=== PATIENT | female | born 1970 | race Hispanic/Latino ===

== ENCOUNTER 2016-11-07 15:46 | Emergency (ER) | payer OTHER ==
[~2016-11-07 15:46] MED LIST: ASCO500T8 PO; Docusate Sodium PO; FERR-74 PO; Ibuprofen PO; OXYC1CAP21 PO; SULF1TAB7 PO
[2016-11-07 15:50] VITALS: BP 109/68; PULSE 71; RESP 16; O2SAT 95
[2016-11-07 16:43] LABS: BASOPHILS % (AUTO) 0.2 % (0-3); EOSINOPHILS % (AUTO) 1.6 % (0-5); MONOCYTES % (AUTO) 4.2 % (4-12); Mean Corpuscular Hemoglobin 27.7 pg (27.0-35.0); Mean Corpuscular Volume 82.2 fL (81-100); NEUTROPHILS % (AUTO) 54.9 % (40-74); Platelet Count 204 bil/L (150-400)
[2016-11-07 17:04] LABS: Magnesium 1.9 mg/dL (1.6-2.6)
[2016-11-07 19:02] LABS: APPEARANCE,URINE HAZY (CLEAR,HAZY); COLOR,URINE YELLOW (YELLOW)
[2016-11-07 19:03] LABS: OCCULT BLOOD,URINE NEGATIVE (NEGATIVE); UROBILINOGEN,URINE NORMAL (NORMAL)
--- NOTE | 2016-11-07 19:22 | ED.REPORT ---
HPI-Abd Pain F 40 and Over Date of Service Nov 07, 2016 ED Provider: Israel Gary MD Pt is a 46 y/o Kosovan-speaking female who presents to ER for left side abdominal pain onset three days ago. She states that the pain spreads medially into her epigastrium. History of similar one year ago, resolved with prescribed medication though she is unsure as to the medications she used to relieve them. Pain is exacerbated with urination. Urinating also elicits perineal pain. Pain is not exacerbated by eating or movement. Pt denies vomiting, diarrhea, constipation, and nausea. Nursing Notes Stated Complaint: ABDOMINAL PAIN Chief Complaint: Female Abdominal Pain Nursing Notes Reviewed: Yes Allergies: Coded Allergies: No Known Allergies (Verified , 02/21/14) Scheduled ([Docusate Sodium]) 100 MG CAPSULE 100 MG PO DAILY Ascorbic Acid (Vitamin C) 500 Mg Tablet 500 MG PO ONCE Ferrous Sulfate (Feosol) 325 Mg Tablet 325 MG PO ONCE Oxycodone Hcl/APAP-Expunged, Do Not Renew! (Oxycodone-Apap [id number], Do Not Renew!) 1 Cap Capsule 1 CAP PO PRN Take 1-2 tabs if needed for pain Ranitidine (Ranitidine) 150 Mg Capsule 150 MG PO BID Sulfamethoxazole/Trimeth 800-160 mg (Bactrim DS) 1 Each Tablet 1 TABLET PO BID Scheduled PRN ([Ibuprofen]) 600 MG TABLET 600 MG PO Q6H PRN PRN For Mild Pain Tramadol (Tramadol) 50 Mg Tablet 100 MG PO Q6H PRN PRN For Pain General Time Seen by MD: 19:20 Chief Complaint Abdominal pain Hx Obtained From: Patient Arrived By: Walk-in Sudden in Onset?: No Onset Occurred: 3 days ago Symptom Duration: Since onset Location: : Epigastric: LUQ Severity: Current: Moderate Severity: Maximum: Moderate Associated with: Reports: Dysuria, Fever, Denies: Constipation, Diarrhea, Nausea, Vomiting Similar Sx Previous: Yes Past Medical History Past Surgical History 4-5 years ago. Reports: Cholecystectomy Social History Alcohol Use: Denies alcohol use Drug Use: Denies drug use Review of Systems Constitutional: Reports: Fever GI: Reports: Abdominal pain, Denies: Constipation, Diarrhea, Hematemesis, Nausea, Vomiting Female: Reports: Dysuria Complete sys rev & neg: except as marked. Physical Exam Vital Signs Vital Signs (First) Date Time Temp Pulse Resp B/P Pulse Ox O2 Delivery O2 Flow Rate FiO2 11/07/16 15:50 37.2 71 16 109/68 95 Room Air Initial VS: Reviewed Head / Eyes: Atraumatic, Normocephalic Neck: Supple, Non-tender, Full range of motion Extremities: Vascular intact, Neuro intact, No swelling, No tenderness Neurologic: Alert, Oriented, Nonfocal Psychiatric: Mood/affect normal, Behavior normal, Normal thought content General/Constitutional: Awake, Alert, Well appearing Respiratory / Chest: Breath sounds NL, Breath sounds = bilat, No respiratory distress, No rales, No rhonchi, No wheezing, No stridor Cardiovascular: Heart rate NL, Regular rhythm, Heart sounds NL, Peripheral circulation NL Abdomen: No guarding, No rebound Tenderness/Guarding/Rebound: Positive: Tender LUQ..., Tender epigastric Back: Inspection NL, Non-tender, No CVA tenderness Interpretation & Diagnostics Lab Results Interpretation Result Diagram: 11/07/16 1630 11/07/16 1630 Test 11/07/16 16:30 11/07/16 18:49 White Blood Count 8.1th/mm3 (3.8-10.1) Red Blood Count 4.26mil/mm3 (3.90-5.20) Hemoglobin 11.8g/dL (12.0-15.6) Hematocrit 35.0% (35.0-46.0) Mean Corpuscular Volume 82.2fL (81-100) Mean Corpuscular Hemoglobin 27.7pg (27.0-35.0) Mean Corpuscular Hemoglobin Concent 33.7% (32.0-37.0) Red Cell Distribution Width 13.2% (12.3-15.4) Platelet Count 204bil/L (150-400) Neutrophils (%) (Auto) 54.9% (40-74) Lymphocytes (%) (Auto) 39.0% (14-46) Monocytes (%) (Auto) 4.2% (4-12) Eosinophils (%) (Auto) 1.6% (0-5) Basophils (%) (Auto) 0.2% (0-3) Sodium Level 138mEq/L (134-144) Potassium Level 3.7mEq/L (3.5-5.2) Chloride Level 102mEq/L (97-108) Carbon Dioxide Level 25mmol/L (18-29) Blood Urea Nitrogen 8mg/dL (6-24) Creatinine 0.35mg/dL (0.57-1.00) Estimat Glomerular Filtration Rate 290mL/min (>59) Glucose Level 190mg/dL (60-99) Calcium Level 8.7mg/dL (8.5-10.1) Magnesium Level 1.9mg/dL (1.6-2.6) Total Bilirubin 0.3mg/dL (0.0-1.2) Aspartate Amino Transf (AST/SGOT) 15U/L (0-50) Alanine Aminotransferase (ALT/SGPT) 18U/L (0-32) Alkaline Phosphatase 53U/L (25-150) Total Protein 7.3g/dL (6.4-8.4) Albumin 3.9g/dL (3.4-5.0) Lipase 59U/L (13-60) Hold Linda Top Tube Received (Received) Urine Color Yellow (YELLOW) Urine Appearance Hazy (CLEAR,HAZY) Urine pH 6.0 (5.0-8.0) Urine Specific [place] 1.025 (1.003-1.035) Urine Protein Negativemg/dL (NEG,TRACE) Urine Glucose (UA) Negativemg/dL (NEGATIVE) Urine Ketones Negativemg/dL (NEGATIVE) Urine Occult Blood Negative (NEGATIVE) Urine Nitrite Negative (NEGATIVE) Urine Bilirubin Negative (NEGATIVE) Urine Urobilinogen Normalmg/dL (NORMAL) Urine Leukocyte Esterase Negative (NEGATIVE) Urine RBC 0-2/hpf (0-2) Urine WBC 0-5/hpf (0-5) Urine Epithelial Cells None/hpf (NONE-MOD) Urine Crystals None seen (NONE SEEN) Urine Bacteria Few/hpf (NONE-FEW) Urine Hyaline Casts None/lpf (NONE) Urine Granular Casts None seen (NONE SEEN) Urine Waxy Casts None seen (NONE SEEN) Urine Red Blood Cell Casts None seen (NONE SEEN) Urine White Blood Cell Casts None seen (NONE SEEN) Urine Mucus Present (None Seen) Urine Trichomonas None seen (NONE SEEN) Urine Yeast None (NONE SEEN) Urinalysis Comment None Urine Culture Reflexed Not indicated Re-Eval/Medical Decision Counseled Regarding: Diagnosis, Lab results, Need for follow-up, When/why to return to ED Discharge & Departure Primary Impression: Acute abdominal pain Disposition: Home Discharge Condition All VS Reviewed: Yes Condition: Stable Additional Instructions: No dangerous cause for your abdominal pain is discovered. Your blood work, urine and vital signs were all within normal limits. Call tomorrow morning for an appointment on Saturday for reevaluation. Return to the emergency department if you develop fever or uncontrolled pain or other new or worrisome symptoms. [employer] Translate No se descubre ninguna causa peligrosa para delgado dolor abdominal. Delgado anlisis de unique, orina y signos vitales estaban dentro de los lmites normales. Llame maana por la maana para molly henri el viernes para la reevaluacin. Vuelva al departamento de urgencias si presenta fiebre o dolor incontrolado u otros sntomas nuevos o preocupantes. Referrals: [facility] ([facility]) Marya Attestation Portions of this note were transcribed by García Vaughan and Tommie Quigley. I, personally performed the history, physical exam and medical decision -making; I reviewed and confirmed the accuracy of the information in the transcribed note. Signed by:aMrya Barnes, 11/07/16 and 2041. copies to: [facility] Kirk H MD Nov 07, 2016 19:22 García Vaughan Nov 07, 2016 19:40 TOMMIE QUIGLEY Nov 07, 2016 20:42
[2016-11-07] MEDS ORDERED: RANI150C4 PO (19:46)
[2016-11-07] MEDS ORDERED: TRAM50TA2 PO (19:46)
[2016-11-07 19:54] VITALS: BP 106/50; PULSE 65; RESP 16; O2SAT 97
== END 2016-11-07 19:55 | disposition home or self-care (01) ==
LOC: EDUNIT# 15:46 → SED 15:46
DX: R10.13 Epigastric pain (principal); R30.9 Painful micturition, unspecified

== ENCOUNTER 2017-04-16 11:38 | Emergency (ER) | payer MEDICAID, OTHER ==
[~2017-04-16 11:38] MED LIST changes: +RANI150C4 PO; +TRAM50TA2 PO
[2017-04-16 11:41] VITALS: BP 111/66; PULSE 76; RESP 20; O2SAT 98
--- NOTE | 2017-04-16 11:55 | ED.REPORT ---
HPI-General Illness Date of Service Apr 16, 2017 ED Provider: Dakota Vizcarra MD Patient is a 47 year old Bruneian-speaking female who presents to the ED complaining of bilateral hand pain and tingling onset over one month ago. Associated symptoms include intermittent hand numbness that is worse with repetitive use of her hands. She denies weakness, headache, or any other symptoms. 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 She also reports upper back and shoulder pain which she attributes to spending her days bending over in the field. She has no other associated symptoms or complaints. She has not seen a physician for this problem or taken any medication. Nursing Notes Stated Complaint: RT ARM NUMBNESS Chief Complaint: Extremity Trauma Nursing Notes Reviewed: Yes Allergies: Coded Allergies: No Known Allergies (Verified , 04/16/17) Scheduled ([Docusate Sodium]) 100 MG CAPSULE 100 MG PO DAILY Ascorbic Acid (Vitamin C) 500 Mg Tablet 500 MG PO ONCE Ferrous Sulfate (Feosol) 325 Mg Tablet 325 MG PO ONCE Oxycodone Hcl/APAP-Expunged, Do Not Renew! 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 (1 month) Symptom Duration: Intermittent Past Medical History Past Medical History Miscarriage 2008 after 5 month Past Surgical History 4-5 years ago. Reports: Cholecystectomy Smoking History Never Smoker Social History Alcohol Use: Denies alcohol use Drug Use: Denies drug use Ambulatory Status Independent Review of Systems Full Review of Systems Musculoskeletal: Reports: Extremity pain Neurologic: Reports: Numbness, Denies: Headache, Weakness Complete sys rev & neg: except as marked. Physical Exam Vital Signs Vital Signs Date Time Temp Pulse Resp B/P Pulse Ox O2 Delivery O2 Flow Rate FiO2 04/16/17 11:41 36.4 76 20 111/66 98 Room Air Initial VS: Reviewed, Vital signs normal Head / Eyes: Atraumatic, Normocephalic Neck: Supple, Full range of motion Respiratory: Breath sounds normal, Clear to auscultation, No respiratory distress Cardiovascular: Regular rate & rhythm, Heart sounds normal, Intact distal pulses Abdomen / GI: Soft, Non-tender Skin: Warm, Dry Neurologic: Alert, Oriented, Nonfocal Psychiatric: Mood/affect normal, Behavior normal, Normal thought content General/Constitutional: Awake, Alert, No acute distress, Well appearing Upper Extremities Upper Extremity / MS: No deformity Tingling reproducible with flexion of wrists positive Phalen's sign and Tinel sign Re-Eval/Medical Decision Med Decision/Clinical Course Patient is a 47 year old Bruneian-speaking female who presents to the ED complaining of bilateral hand pain and tingling onset over one month ago that happens in the setting of recurrent use of her hands 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 Here in the emergency department the patient is afebrile, hemodynamically stable and in no apparent distress. The patient has reproducible pins and needle sensation in her hands with tapping about the dorsal aspect of her wrist (Tinel test). The patient additionally has a positive Phalen test. Presentation is consistent with carpal tunnel syndrome in the setting of her tentative wrist motions. I provided her a cockup wrist splint and advised her to take ibuprofen and avoid repetitive wrist movements as much as possible. At this time, I feel that she is appropriate for discharge. She will follow up closely with her primary care physician. Prior to discharge follow-up and return precautions were reviewed in detail with the patient who verbalized understanding and agreement with the plan. The patient was discharged in stable condition. Time of Eval: 12:08 Re-Evaluation/Progress Note: Discussed plan for discharge. Patient understands and agrees with plan. All questions addressed at this time. Counseled Regarding: Diagnosis, Need for follow-up, When/why to return to ED Discharge & Departure Primary Impression: Carpal tunnel syndrome on both sides Additional Impression: Upper back pain Disposition: Home Discharge Condition All VS Reviewed: Yes Condition: Stable Additional Instructions: Thank you for seeking care at the emergency room. It is difficult for us to make definitive diagnoses in the ED but we believe that you are experiencing back pain from bending over picking strawberries as well as carpal tunnel syndrome. Our primary goal today in the ED was to evaluate you for any life-threatening conditions. Your evaluation was reassuring. You may take ibuprofen 400 mg 3 times a day for up to 2 weeks. Please use wrist splints as directed at night. You should follow-up with your primary doctor in the next week. You should return to the ED immediately if you develop worsening symptoms, fevers, vomiting, cough, shortness of breath, chest pain, lightheadedness, weakness or any other concerning signs or symptoms. Thank you for letting us partake in your care today. Bety por buscar atencin mdica en la [facility]gen[facility]. Es dificil hacer molly diagnosis definitiva en la [facility] Emer[facility], ben creemos que usted tiene dolor de espalda causada por agacharse trabajando en las fresas, y tambien tiene sndrome del [facility] subhash. Nuestra meta principal hoy en la [facility] Emer[facility] fue evaluarla para condiciones que ponen en peligro la chanel. La evaluacin me vladimir tranquilo. Puede theresa Ibuprofen 400 mg, 3 veces al mery por hasta 2 semanas. Favor de usar los soportes de la mueca en la noche, page dirigida. Debe ir con [facility] doctor de cabecera en la prxima semana. Debe regresar a la [facility] Emergencia de inmediato si las sintomas empeoren, o si tiene fiebre, vmito, tos, falta de aire, dolor de pecho, mareos, debilidad, o cualquier otro seal o sintoma que le preocupe. Bety por dejarnos ser parte de steinberg cuidado medico hoy. TD, [employer] Guard Referrals: Alexandre Driscoll MD (PCP) Scribe Attestation Portions of this note were transcribed by Rodríguez Terry. I, Dr. Vizcarra personally performed the history, physical exam and medical decision-making; I reviewed and confirmed the accuracy of the information in the transcribed note. Signed by: Rodríguez Terry 04/16/17, 1323 copies to: Alexandre Driscoll MD, Beck O MD Apr 16, 2017 11:54 RODRÍGUEZ TERRY Apr 16, 2017 12:08
== END 2017-04-16 13:04 | disposition home or self-care (01) ==
LOC: SED 11:38
DX: G56.01 Carpal tunnel syndrome, right upper limb (principal); G56.02 Carpal tunnel syndrome, left upper limb; M54.6 Pain in thoracic spine

== ENCOUNTER 2017-07-18 18:57 | Emergency (ER) | payer OTHER ==
[~2017-07-18] VITALS: Ht 152.4 cm; Wt 69.6 kg
[2017-07-18 19:13] VITALS: BP 102/65; PULSE 68; RESP 16; O2SAT 99
--- NOTE | 2017-07-18 19:44 | ED.REPORT ---
APZ-Byr-Bbib Illness Date of Service Jul 18, 2017 ED Provider: Venkata Nathan DO A 47 year old female with no pertinent medical history presents to the ED complaining of a cough. This is accompanied by wheezing when she coughs, rhinorhhea and pain with speaking and swallowing. The pt first noticed rhinorrhea two days ago that soon progressed to include his other symptoms. Nursing Notes Stated Complaint: COUGH Chief Complaint: FLU/Cold Symptoms Nursing Notes Reviewed: Yes Allergies: Coded Allergies: No Known Allergies (Verified , 04/16/17) Scheduled ([Docusate Sodium]) 100 MG CAPSULE 100 MG PO DAILY Ascorbic Acid (Vitamin C) 500 Mg Tablet 500 MG PO ONCE Ferrous Sulfate (Feosol) 325 Mg Tablet 325 MG PO ONCE Oxycodone Hcl/APAP-Expunged, Do Not Renew! 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 Arrived By: Walk-in Onset Occurred: 2 days ago Symptom Duration: Since onset Recent Healthcare: No recent hospitalization, Recent doctor visit Similar Sx Previous: No Past Medical History Past Medical History Miscarriage 2008 after 5 month Past Surgical History Reports: Cholecystectomy Smoking History Never Smoker Social History Alcohol Use: Denies alcohol use Drug Use: Denies drug use Ambulatory Status Independent Review of Systems Review of Systems Note: pain with speaking and swallowing Constitutional: Denies: Chills Eyes: Denies: Blurred left, Blurred right Ears / Nose / Throat: Denies: Ear drainage right Respiratory: Reports: Non-productive cough, Denies: Shortness of breath Cardiovascular: Denies: Chest pain, Dyspnea on exertion GI: Denies: Abdominal pain, Vomiting Musculoskeletal: Denies: Back pain, Extremity pain, Extremity swelling, Neck pain Neurologic: Denies: Abnormal movement Complete sys rev & neg: except as marked. Skin: Denies Rash Allergy / Immune: Reports: Rhinorrhea Physical Exam Initial Vital Signs Vital Signs (First) Date Time Temp Pulse Resp B/P Pulse Ox O2 Delivery O2 Flow Rate FiO2 07/18/17 19:13 37.0 68 16 102/65 99 Room Air Initial VS: Reviewed General/Constitutional: Awake, Alert Neck: Atraumatic, Supple, Full range of motion Respiratory / Chest: Atraumatic, No respiratory distress rales in the right upper lobe Cardiovascular: Heart rate NL, Regular rhythm, Heart sounds NL Skin: Color NL, No rash, Warm, Dry Neurologic: Oriented X3, Speech NL, No motor deficits, No sensory deficits Head / Eyes: Atraumatic, Normocephalic, PERRL, EOMI ENT: Airway patent, Mucous membranes moist bright red pharyngitis Abdomen: Atraumatic, Soft, Non-tender Back: Atraumatic, Full range of motion Upper Extremity / MS: Atraumatic, Full range of motion Lower Extremity / Pelvis / MS: Atraumatic, Full range of motion Psychiatric: Affect NL, Mood NL Interpretation & Diagnostics Lab Results Interpretation Test 07/18/17 21:32 Urine Color Straw (YELLOW) Urine Appearance Clear (CLEAR,HAZY) Urine pH 6.0 (5.0-8.0) Urine Specific [place] 1.005 (1.003-1.035) Urine Protein Negativemg/dL (NEG,TRACE) Urine Glucose (UA) Negativemg/dL (NEGATIVE) Urine Ketones Negativemg/dL (NEGATIVE) Urine Occult Blood Negative (NEGATIVE) Urine Nitrite Negative (NEGATIVE) Urine Bilirubin Negative (NEGATIVE) Urine Urobilinogen Normalmg/dL (NORMAL) Urine Leukocyte Esterase Small (NEGATIVE) Urine RBC 0-2/hpf (0-2) Urine WBC 0-5/hpf (0-5) Urine Epithelial Cells Moderate/hpf (NONE-MOD) Urine Crystals None seen (NONE SEEN) Urine Bacteria Moderate/hpf (NONE-FEW) Urine Hyaline Casts None/lpf (NONE) Urine Granular Casts None seen (NONE SEEN) Urine Waxy Casts None seen (NONE SEEN) Urine Red Blood Cell Casts None seen (NONE SEEN) Urine White Blood Cell Casts None seen (NONE SEEN) Urine Mucus None seen (None Seen) Urine Trichomonas None seen (NONE SEEN) Urine Yeast None (NONE SEEN) Urinalysis Comment None Urine Culture Reflexed Indicated Pulse Oximetry Interpretation Pulse Oximetry Interpretation: 99% on room air Pulse Oximetry: Pulse Ox normal Re-Evaluation & MDM Med Decision/Clinical Course Prompt response to bronchodilators. We will place her on albuterol and prednisone. Zithromax for bronchitis. The pharyngitis appears viral. Primary care. PE and PR are highly unlikely. No chest pain. No shortness of breath. Upper respiratory tract infection with bronchospasm is evident. Source of Hx: Old records Re-Evaluation/Progress : Time of Eval: 21:50 Patient Status: Condition improved Re-Evaluation/Progress Note: Pt rechecked, who is comfortable. The diagnosis and plan for discharge are discussed. The pt understands and agrees with the plan. All questions are addressed at this time. Counseled Regarding: Diagnosis, Lab results, Need for follow-up, When/why to return to ED Patient Discharge & Departure Impression: Primary Impression: Pharyngitis Pharyngitis/tonsillitis etiology: unspecified etiology Qualified Code: J02.9 - Acute pharyngitis, unspecified Additional Impression: Bronchitis with bronchospasm Disposition: Home Discharge Condition All VS Reviewed: Yes Condition: Stable Patient Instructions: Acute Bronchitis (ED), Pharyngitis (ED) Additional Instructions: Your influenza test was negative but you do have an infection of the throat and lungs. Finish the Z-pac. Take Prednisone daily for three days. Use the albuterol twice every four hours as needed for cough. Call your primary care physician to arrange a follow up appointment in the next several days for further evaluation. Return to the emergency department if you develop any new or worsening symptoms such as chest pain, shortness of breath, or coughing up blood. Your urine may be infected so we are culturing the sample. Follow up with your primary care physician on Saturday or Saturday to discuss the results. Delgado prueba de influenza fue negativa, ben s tiene molly infeccin de la garganta y los pulmones. Termina el Z-pac. [place] Prednisone diariamente mariam lucinda d as. Utilice el albuterol dos veces cada cuatro horas segn sea necesario para la tos. Llame a delgado mdico de atencin primaria para concertar molly henri de seguimiento en los prximos acevedo para molly evaluacin ms detallada. Vuelva al departamento de emergencias si presenta sntomas nuevos o que empeoran, page dolor en el pecho, dificultad para respirar o tos con unique. Delgado orina puede estar infectada por lo que estamos cultivando la muestra. Siga con delgado mdico de atencin primaria el lunes o el chay para discutir los resultados. Referrals: Alexandre Driscoll MD (PCP) Scribe Attestation Portions of this note were transcribed by Ladonna Lindsay. I, Dr. Nathan personally performed the history, physical exam and medical decision-making; I reviewed and confirmed the accuracy of the information in the transcribed note. copies to: Alexandre Driscoll MD, Todd P DO Jul 18, 2017 19:44 LADONNA LINDSAY Jul 18, 2017 20:06
[2017-07-18] MEDS ORDERED: Dexamethasone 20 mg/2 mL Oral Solution PO ONE (20:20)
[2017-07-18] MEDS ORDERED: Albuterol-Ipratropium 3 mL Inhalation Solution NEB ONE (20:20)
[2017-07-18 20:40] VITALS: PULSE 66; RESP 18; O2SAT 98
[2017-07-18] MEDS ORDERED: _Proair 200 Puff/8.5 GM Inhaler INHALATION PRN (21:20)
[2017-07-18] MEDS ORDERED: _Proair 200 Puff/8.5 GM Inhaler INHALATION SCH (21:45)
[2017-07-18 21:46] LABS: APPEARANCE,URINE CLEAR (CLEAR,HAZY); COLOR,URINE STRAW (YELLOW); OCCULT BLOOD,URINE NEGATIVE (NEGATIVE)
[2017-07-18 21:47] LABS: UROBILINOGEN,URINE NORMAL (NORMAL)
== END 2017-07-18 22:30 | disposition home or self-care (01) ==
LOC: SED 18:57
DX: J02.9 Acute pharyngitis, unspecified (principal); J98.01 Acute bronchospasm; J40 Bronchitis, not specified as acute or chronic; R13.10 Dysphagia, unspecified; Z90.49 Acquired absence of other specified parts of digestive tract
CPT/HCPCS: 81000; 87086; 87088; 87804; 94664; 99284; J7620